=== PATIENT | female | born 1975 | race Caucasian/White ===

== ENCOUNTER 2018-05-29 15:30 | Emergency (ER) | payer OTHER ==
[~2018-05-29] VITALS: Ht 157.5 cm; Wt 49.9 kg
[~2018-05-29 15:30] MED LIST: Amoxicillin875 MG PO
[2018-05-29] MEDS ORDERED: Prednisone20 MG PO (15:49)
== END 2018-05-29 15:52 | disposition home or self-care (01) ==
LOC: ER 15:30
DX: T55.0X1A Toxic effect of soaps, accidental (unintentional), initial encounter (principal); L25.3 Unspecified contact dermatitis due to other chemical products